=== PATIENT | male | born 1970 | race Caucasian/White ===

== ENCOUNTER 2017-08-11 22:22 | Inpatient (IN) | payer OTHER ==
[2017-08-12] VITALS (10 sets, daily range): BP systolic 121–134; BP diastolic 66–76; PULSE 46–55; RESP 16; TEMP 97.9–98.7; O2SAT 98–99
[2017-08-12] MEDS ORDERED: LACTULOSE SYRUP 20 GM/30 ML CUP PO PRN (01:15)
[2017-08-12] MEDS ORDERED: BISACODYL 10 MG SUPP RECTAL PRN (01:15)
[2017-08-12] MEDS ORDERED: SODIUM CHLORIDE 0.9% FLUSH 10 ML FLUSH IV FLUSH PRN (01:15)
[2017-08-12] MEDS ORDERED: MAGNESIUM HYDROXIDE SUSP 30 ML CUP PO PRN (01:15)
[2017-08-12] MEDS ORDERED: NALOXONE HCL 0.4 MG/ML AMP IV PUSH PRN (01:15)
[2017-08-12] MEDS ORDERED: SENNOSIDES 8.6 MG TAB PO PRN (01:15)
[2017-08-12] MEDS ORDERED: MORPHINE SULFATE 4 MG/ML INJ IV PRN (01:30)
--- NOTE | 2017-08-12 07:49 | HHI.HP ---
[facility] Primary Care Physician No Primary Care Physician Admission Diagnosis Diagnoses: Travel History International Travel<30 Days: No Contact w/Intl Traveler <30 Da: No Sepsis Criteria SIRS Criteria (2 or more): WBC > 60741, < 4000 or > 10% bands History of Present Illness 46 year old male with no significant medical history presented to the ED in [place] yesterday evening for evaluation of RUQ abdominal pain and subsequently transferred to the [facility] for further evaluation. He states the pain came on suddenly for the first time about a week ago and lasted about an hour then recurred that same evening. He describes the pain as sharp, constant, nonradiating, and 10/10. He had eaten chicken wings prior to the pain the second time it occurred but the first time he states he hadn't eaten anything. The pain then came on again yesterday evening about a couple hours after eating a sub. He states he had to pace around his house because the pain was so severe and it was associated with nausea and vomiting. Aspirin and Pepto Bismol provided no relief. Prior to these few episodes, he has never experienced pain like this before. He denies any urine symptoms, diarrhea, jaundice, melena, or hematochezia. He states he lost about 25 pounds in the past six months from changing his dietary habits. He hasn't had any morphine since transferring to the [facility] and states he has been pain free since about 10 PM yesterday evening. He is tolerating liquids but hasn't eaten anything. He has had no further episodes of nausea or vomiting. He wants to go home. He does not have a PCP. Review of Systems Constitutional: COMPLAINS OF: Chills, Change in appetite, DENIES: Fatigue, Fever Endocrine: DENIES: Polyuria Eyes: DENIES: Blurred vision Respiratory: DENIES: Cough, Shortness of breath Cardiovascular: DENIES: Chest pain, Palpitations, Syncope Gastrointestinal: COMPLAINS OF: Abdominal pain, Constipation, Nausea, Vomiting , DENIES: Black stools, Bloody stools, Diarrhea Genitourinary: DENIES: Urinary frequency, Hematuria, Dysuria Musculoskeletal: DENIES: Joint pain Integumentary: DENIES: Rash Neurologic: DENIES: Headache Past Family Social History Past Medical History None Past Surgical History R shoulder repair Reported Medications None Allergies: Coded Allergies: No Known Allergies (Unverified , 08/11/17) Active Ordered Medications Bisacodyl (Dulcolax Supp) 10 mg DAILY PRN RECTAL; Start 08/12/17 at 01:15 Lactulose (Lactulose Liq) 30 ml DAILY PRN PO; Start 08/12/17 at 01:15 Magnesium Hydroxide (Milk Of Magnesia Liq) 30 ml Q12H PRN PO; Start 08/12/17 at 01:15 Morphine Sulfate (Morphine Inj) 2 mg Q3H PRN IV; Start 08/12/17 at 01:30 Naloxone HCl (Narcan Inj) 0.4 mg UNSCH PRN IV PUSH; Start 08/12/17 at 01:15 Sennosides (Senokot) 17.2 mg Q12H PRN PO; Start 08/12/17 at 01:15 Sodium Chloride (NS Flush) 2 ml BID IV FLUSH; Start 08/12/17 at 09:00 Sodium Chloride (NS Flush) 2 ml UNSCH PRN IV FLUSH; Start 08/12/17 at 01:15 Family History Parents alive and well Denies significant medical history in the family Social History Lives in [place] 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 SKIN: No rashes, ecchymoses or lesions. Cool and dry. No jaundice. HEAD: Atraumatic. Normocephalic. No temporal or scalp tenderness. EYES: Pupils equal round and reactive. Extraocular motions intact. No scleral icterus. No injection or drainage. ENT: Nose without bleeding, purulent drainage or septal hematoma. Throat without erythema, tonsillar hypertrophy or exudate. Uvula midline. Airway patent. NECK: Trachea midline. No JVD or lymphadenopathy. Supple, nontender, no meningeal signs. CARDIOVASCULAR: Bradycardic with a regular rhythm. No murmurs, rubs, or gallops. RESPIRATORY: Clear to auscultation. Breath sounds equal bilaterally. No wheezes , rales, or rhonchi. GASTROINTESTINAL: Bowel sounds hypoactive but present. Abdomen soft, nontender, nondistended. No hepatosplenomegaly or palpable masses. No guarding. MUSCULOSKELETAL: Extremities without clubbing, cyanosis, or edema. No joint tenderness, effusion, or edema noted. No calf tenderness. Negative Homans sign bilaterally. NEUROLOGICAL: Awake and alert. Motor and sensory grossly within normal limits. Normal speech. Imaging CT abdomen 08/11 with no acute abnormality identified to explain L flank pain and lower abdominal pain. There is a small hiatal hernia and incidental 7 mm low density lesion in the R posterior liver too small to characterize. Gallbladder is distended but no calcified gallstones are present Caprini VTE Risk Assessment Caprini VTE Risk Assessment: No/Low Risk (score <= 1) Caprini Risk Assessment Model Point Value = 1 Point Value = 2 Point Value = 3 Point Value = 5 Age 41-60 Minor surgery BMI > 25 kg/m2 Swollen legs Varicose veins or History of unexplained or recurrent spontaneous Oral contraceptives or hormone replacement Sepsis (< 1 month) Serious lung disease, including pneumonia (< 1 month) Abnormal pulmonary function Acute myocardial infarction Congestive heart failure (< 1 month) History of inflammatory bowel disease Medical patient at bed rest Age 61-74 Arthroscopic surgery Major open surgery (> 45 min) Laparoscopic surgery (> 45 min) Malignancy Confined to bed (> 72 hours) Immobilizing plaster cast Central venous access Age >= 75 History of VTE Family history of VTE Factor V Leiden Prothrombin [id number] Lupus anticoagulant Anticardiolipin antibodies Elevated serum homocysteine Heparin-induced thrombocytopenia Other congenital or acquired thrombophilia Stroke (< 1 month) Elective arthroplasty Hip, pelvis, or leg fracture Acute spinal cord injury (< 1 month) Prophylaxis Regimen Total Risk Factor Score Risk Level Prophylaxis Regimen 0-1 Low Early ambulation 2 Moderate Order ONE of the following: *Sequential Compression Device (SCD) *Heparin 5000 units SQ BID 3-4 Higher Order ONE of the following medications: *Heparin 5000 units SQ TID *Enoxaparin/Lovenox 40 mg SQ daily (WT < 150 kg, CrCl > 30 mL/min) *Enoxaparin/Lovenox 30 mg SQ daily (WT < 150 kg, CrCl > 10-29 mL/min) *Enoxaparin/Lovenox 30 mg SQ BID (WT < 150 kg, CrCl > 30 mL/min) AND/OR *Sequential Compression Device (SCD) 5 or more Highest Order ONE of the following medications: *Heparin 5000 units SQ TID (Preferred with Epidurals) *Enoxaparin/Lovenox 40 mg SQ daily (WT < 150 kg, CrCl > 30 mL/min) *Enoxaparin/Lovenox 30 mg SQ daily (WT < 150 kg, CrCl > 10-29 mL/min) *Enoxaparin/Lovenox 30 mg SQ BID (WT < 150 kg, CrCl > 30 mL/min) AND *Sequential Compression Device (SCD) Assessment and Plan Problem List: (1) Abdominal pain ICD Code: R10.9 - Unspecified abdominal pain Assessment and Plan 46 year old male with no significant medical history admitted overnight for evaluation of RUQ abdominal pain. 1. RUQ abdominal pain, now resolved - Afebrile, leukocytosis with WBC 17 - U/A unremarkable, culture pending - CT abdomen with distended gallbladder, no calcified stones, and incidental 7 mm liver lesion too small to characterize - GB U/S pending - Lipase WNL - LFTs WNL - Pain, nausea, and vomiting all resolved - Advised to avoid fatty foods - Will have try a light breakfast and see how he does - Likely GB colic which can be followed as outpatient 2. Hypercalcemia - Calcium elevated at 10.2 - Repeat CMP today - If this continues to be elevated recommend checking PTH as primary hyperparathyroidism may cause abdominal pain as well 3. Leukocytosis - WBC 17.2 on presentation with no clear etiology of infection - Afebrile - Repeat CBC 4. Bradycardia - Likely chronic - Asymptomatic - Monitor DVT prophylaxis: Low risk and ambulatory Code Status FULL Discussed Condition With The patient and RN Physician Certification 2 Midnight Certification Type: Admission for Inpatient Services Order for Inpatient Services The services are ordered in accordance with Medicare regulations or non- Medicare payer requirements, as applicable. In the case of services not specified as inpatient-only, they are appropriately provided as inpatient services in accordance with the 2-midnight benchmark. Estimated LOS (days): 2 2 days is the estimated time the patient will need to remain in the hospital, assuming treatment plan goals are met and no additional complications. Post-Hospital Plan: Home Afshan Hastings MD Aug 12, 2017 07:49
--- NOTE | 2017-08-12 08:42 | RADRPT ---
EXAM DATE: 08/12/2017 8:31 AM EDT AGE/SEX: 46 years / Male INDICATIONS: Right upper quadrant pain. Nausea and vomiting. CLINICAL DATA: This is the patient's initial encounter. Patient reports that signs and/or symptoms h ave been present for 1 day and indicates a pain score of 10/10. MEDICAL/SURGICAL HISTORY: . . COMPARISON: [facility], CT ABDOMEN & PELVIS W/O CONTRAST, 08/11/2017. MEASUREMENTS (cm x cm x cm): Liver:__ 15.2 cm length Common Bile Duct:__ 4mm FINDINGS: Liver: Normal echotexture without focal lesion or ductal dilatation. No lesions are identified. Portal Vein: Hepatopedal flow seen in portal vein. Common Duct: No intraluminal mass or stone visualized. Gallbladder: The gallbladder is distended with diffuse low level echoes and punctate areas of increa sed echogenicity. Findings are suspicious for sludge and small stones. There is mild wall thickening measuring approximately 4 mm. Pancreas: The visualized portions are within normal limits Right Kidney: No mass or hydronephrosis Other: None. CONCLUSION: 1. The gallbladder is distended with sludge with mild wall thickening. Punctate areas of increased e chogenicity are suspicious for multiple small stones. Given the patient's presentation of pain within the right upper quadrant findings are suspicious for acute cholecystitis. Electronically signed by: Sherri Hathaway MD 08/12/2017 8:41 AM EDT
[2017-08-12] MEDS ORDERED: SODIUM CHLORIDE 0.9% FLUSH 10 ML FLUSH IV FLUSH SCH (09:00)
[2017-08-12 09:50] LABS: AUTOMATED NEUTROPHIL # 10.4 TH/MM3 (1.8-7.7); BASOPHIL # 0.1 TH/MM3 (0-0.2); BASOPHIL % 0.5 % (0.0-2.0); EOSINOPHIL # 0.1 TH/MM3 (0-0.4); HEMOGLOBIN 17.4 GM/DL (13.0-17.0); LYMPH % 18.1 % (9.0-44.0); LYMPHOCYTE # 2.6 TH/MM3 (1.0-4.8); MEAN CELL VOLUME 85.8 FL (80.0-100.0); MEAN CORPUSCULAR HEMOGLOBIN 29.3 PG (27.0-34.0); MEAN CORPUSCULAR HGB CONC 34.2 % (32.0-36.0); MEAN PLATELET VOLUME 9.9 FL (7.0-11.0); MONO % 7.8 % (0.0-8.0); MONOCYTE # 1.1 TH/MM3 (0-0.9); NEUT % 72.6 % (16.0-70.0); PLATELET COUNT 161 TH/MM3 (150-450); RED BLOOD COUNT 5.95 MIL/MM3 (4.50-5.90); RED CELL DISTRIBUTION WIDTH 14.7 % (11.6-17.2); WHITE BLOOD COUNT 14.4 TH/MM3 (4.0-11.0)
[2017-08-12 10:10] LABS: ALT (GPT) 49 U/L (12-78)
[2017-08-12 10:12] LABS: ALKALINE PHOSPHATASE 68 U/L (45-117); TOTAL BILIRUBIN ADULT 1.2 MG/DL (0.2-1.0); TOTAL PROTEIN 8.2 GM/DL (6.4-8.2)
[2017-08-12 10:16] LABS: ALBUMIN 4.3 GM/DL (3.4-5.0); AST (GOT) 29 U/L (15-37); BICARBONATE 26.4 MEQ/L (21.0-32.0); BLOOD UREA NITROGEN 20 MG/DL (7-18); CALCIUM 9.2 MG/DL (8.5-10.1); CHLORIDE 104 MEQ/L (98-107); CREATININE 1.18 MG/DL (0.60-1.30); GLOMERULAR FILTRATION RATE 67 ML/MIN (>89); GLUCOSE,RANDOM 95 MG/DL (74-106); SODIUM (NA) 139 MEQ/L (136-145)
--- NOTE | 2017-08-12 10:30 | HHI.DCPOC ---
Discharge Care Plan Diagnosis: (1) Cholecystitis (2) Gallbladder colic Goals to Promote Your Health * To prevent worsening of your condition and complications * To maintain your health at the optimal level Directions to Meet Your Goals Take your medications as prescribed Follow your dietary instruction Follow activity as directed Keep your appointments as scheduled Take your immunizations and boosters as scheduled If your symptoms worsen call your PCP, if no PCP go to Urgent Care Center or Emergency Room Smoking is Dangerous to Your Health. Avoid second hand smoke Call the 24-hour hour crisis hotline for domestic abuse at Afshan Hastings MD Aug 12, 2017 10:30
[2017-08-12] MEDS ORDERED: CIPR-9 PO (10:32)
[2017-08-12] MEDS ORDERED: METR-1 PO (10:32)
== END 2017-08-12 10:47 | disposition home or self-care (01) | DRG 446 ==
LOC: PHEDDLT 08-12 00:45 → HCIS 08-12 00:55
PROVIDERS: ADMIT Family Medicine; ATTEND Family Medicine
DX: K80.10 Calculus of gallbladder with chronic cholecystitis without obstruction (principal); E83.52 Hypercalcemia; R00.1 Bradycardia, unspecified; D72.829 Elevated white blood cell count, unspecified
CPT/HCPCS: 76705; 80053; 85025

== ENCOUNTER 2017-09-23 06:22 | Inpatient (IN) ==
[2017-09-23] MEDS ORDERED: Morphine Inj 4 MG, Morphine Inj 2 MG IV.PUSH ONE ×2 (07:16)
--- NOTE | 2017-09-23 07:18 | ED ---
HPI General Chief complaint: Abdominal Pain Stated complaint: ABD pain, EVAC Time Seen by Provider: 09/23/17 07:01 History of Present Illness HPI narrative: Patient is a 47-year-old male presents emergency department for right upper quadrant abdominal pain started about 0400 this morning. Patient states he had chicken and rice last night for dinner. States he has known gallbladder problems is scheduled to have his gallbladder out with Dr. Natarajan later this month. Mild nausea no vomiting no diarrhea no fevers. States the pain is fairly intense right upper quadrant no radiation, associated signs symptoms in context as above. Related Data Previous Rx's Medication Instructions Recorded oxycodone-acetaminophen 1 tab PO Q4H PRN tab 09/24/17 Allergies Allergy/AdvReac Type Severity Reaction Status Date / Time No Known Allergies Allergy Verified 09/23/17 06:26 Review of Systems Except as stated in HPI: all other systems reviewed are negative [facility] History Medical History Gall stone (Acute) Social History Social History Substance History: Past History Second Hand Smoke Exposure: Yes Smoking Status: Current every day smoker Tobacco Type: Cigarettes How Often Do You Have a Drink Containing Alcohol: 2 to 4 times a month Recent Travel in [facility] within the Last 8 Weeks: No Recent Out of Country Travel within the Last 8 Weeks: No Substance Abuse Detail Marijuana: Substance Frequency: COUPLE TIMES MONTH Immunization History Tetanus Immunization: Unsure Hx Influenza Vaccine This Season: No Exam Narrative Exam Narrative: GENERAL: Well-developed well-nourished, fairly uncomfortable appearance SKIN: Focused skin assessment warm/dry. HEAD: Atraumatic. Normocephalic. EYES: Pupils equal and round. No scleral icterus. No injection or drainage. ENT: No nasal bleeding or discharge. Mucous membranes pink and moist. NECK: Trachea midline. No JVD. CARDIOVASCULAR: Regular rate and rhythm. No murmur appreciated. RESPIRATORY: No accessory muscle use. Clear to auscultation. Breath sounds equal bilaterally. GASTROINTESTINAL: Abdomen soft, moderately tender in the right upper quadrant, no rebound no percussive tenderness. This dictation of the Palma sign elicits pain but is actually negative sign. nondistended. Hepatic and splenic margins not palpable 2/2 pain. MUSCULOSKELETAL: No obvious deformities. No clubbing. No cyanosis. No edema. NEUROLOGICAL: Awake and alert. No obvious cranial nerve deficits. Motor grossly within normal limits. Normal speech. PSYCHIATRIC: Appropriate mood and affect; insight and judgment normal. Course Initial Documented Vital Signs Temperature 97.8 F 09/23/17 06:26 Pulse Rate 48 L 09/23/17 06:26 Respiratory Rate 16 09/23/17 06:26 Blood Pressure 151/83 H 09/23/17 06:26 Pulse Oximetry 100 09/23/17 06:26 Last Documented Vital Signs Temperature 97.6 F 09/24/17 08:00 Pulse Rate 54 L 09/24/17 08:00 Respiratory Rate 20 09/24/17 08:00 Blood Pressure 116/62 09/24/17 08:00 Pulse Oximetry 97 09/24/17 08:00 Medical Decision Making MDM Narrative Medical decision making narrative: Patient with positive US for cholecystitis. Labs reassuring. Feeling improved after morphine but pain not completely resolved. D/W Dr. Natarajan who knows patient. Would like to admit probable cholecystectomy. Differential Diagnosis Differential Diagnosis: Cholecystitis, pancreatitis, gastritis, gastroenteritis. Lab Data Result diagrams: 09/23/17 07:18 09/23/17 07:18 Lab Results 09/23/17 09/23/17 09/23/17 Range/Units 07:18 07:18 11:20 WBC 12.7 H (4.0-11.0) th/mm3 RBC 5.58 (4.50-5.90) mil/mm3 Hgb 16.5 (13.0-17.0) gm/dL Hct 48.6 (39.0-51.0) % MCV 87.2 (80.0-100.0) fL MCH 29.5 (27.0-34.0) pg MCHC 33.8 (32.0-36.0) % RDW 13.8 (11.6-17.2) % Plt Count 184 (150-450) th/mm3 MPV 9.9 (7.0-11.0) fL Neut % (Auto) 78.6 H (16.0-70.0) % Lymph % (Auto) 13.5 (9.0-44.0) % [place] % (Auto) 7.0 (0.0-8.0) % Eos % (Auto) 0.4 (0.0-4.0) % Baso % (Auto) 0.5 (0.0-2.0) % Neut # (Auto) 10.0 H (1.8-7.7) th/mm3 Lymph # (Auto) 1.7 (1.0-4.8) th/mm3 [place] # (Auto) 0.9 (0.0-0.9) th/mm3 Eos # (Auto) 0.0 (0.0-0.4) th/mm3 Baso # (Auto) 0.1 (0.0-0.2) th/mm3 WBC Differential . Differential Comment Auto diff final Sodium 143 (136-145) meq/L Potassium 3.5 (3.5-5.1) meq/L Chloride 109 H (98-107) meq/L Carbon Dioxide 18.8 L (21.0-32.0) meq/L Anion Gap 15 (5-15) meq/L BUN 16 (7-18) mg/dL Creatinine 1.00 (0.60-1.30) mg/dL Estimated GFR 80 L (>89) mL/min Random Glucose 116 H (74-106) mg/dL Calcium 8.5 (8.5-10.1) mg/dL Total Bilirubin 0.6 (0.2-1.0) mg/dL AST 25 (15-37) U/L ALT 43 (12-78) U/L Alkaline Phosphatase 66 (45-117) U/L Total Protein 6.7 (6.4-8.2) g/dL Albumin 3.6 (3.4-5.0) g/dL Lipase 127 (73-393) U/L Urine Color Yellow (Yellw/Straw) Urine Clarity Clear (Clear) Urine pH 6.0 (5.0-8.5) Ur Specific [place] 1.015 (1.002-1.035) Urine Protein 100 H (Neg-Trace) mg/dL Urine Glucose (UA) Negative (Negative) mg/dL Urine Ketones 20 (Negative) mg/dL Urine Occult Blood Small H (Negative) Urine Nitrate Negative (Negative) Urine Bilirubin Negative (Negative) Urine Urobilinogen Less than 2 (Less than 2) mg/dL Ur Leukocyte Esterase Negative (Negative) Urine RBC 1 (0-3) /hpf Urine WBC 4 (0-5) /hpf Hyaline Casts 1 (0-3) /lpf Urine Mucus Many H (Occasional) /lpf Micro UA Comment Culture not ind Urine Culture Comments Culture not ind Imaging Data Radiologist's impression: Gallbladder Ultrasound 09/23/17 07:16 CONCLUSION: 1. Ultrasound findings consistent with acute cholecystitis. Discharge Plan Discharge Disposition Patient Disposition: 01 Discharge Home Discharge Condition Condition: Good Discharge Order Discharge Orders: Discharge Order (Routine); Ordered 09/24/17 Ordered By: Adama Natarajan Discharge Details Anticipated Discharge Date: 09/24/17 Discharge Comment: scritp on chart Physicians Team ED Provider: Kieran Dickey Primary Care Provider: UNKNOWN, Attending Provider: Adama Natarajan Other Providers: Surgeons,[facility] Status ED Status: Left Department Discharge Information Discharge Date/Time: 09/23/17 13:30
[2017-09-23 07:35] LABS: Baso # (Auto) 0.1 th/mm3 (0.0-0.2); Baso % (Auto) 0.5 % (0.0-2.0); Eos % (Auto) 0.4 % (0.0-4.0); Hematocrit 48.6 % (39.0-51.0); Hemoglobin 16.5 gm/dL (13.0-17.0); Lymph # (Auto) 1.7 th/mm3 (1.0-4.8); Lymph % (Auto) 13.5 % (9.0-44.0); Mean Corpuscular HGB Conc 33.8 % (32.0-36.0); Mean Corpuscular Hemoglobin 29.5 pg (27.0-34.0); Mean Corpuscular Volume 87.2 fL (80.0-100.0); Mean Platelet Volume 9.9 fL (7.0-11.0); Mono # (Auto) 0.9 th/mm3 (0.0-0.9); Neut % (Auto) 78.6 % (16.0-70.0); Platelet Count 184 th/mm3 (150-450); Red Blood Count 5.58 mil/mm3 (4.50-5.90); Red Cell Distribution Width 13.8 % (11.6-17.2); White Blood Count 12.7 th/mm3 (4.0-11.0)
[2017-09-23 07:45] LABS: Alkaline Phosphatase 66 U/L (45-117); Total Protein 6.7 g/dL (6.4-8.2)
[2017-09-23 07:47] LABS: Alanine Aminotransferase 43 U/L (12-78); Albumin 3.6 g/dL (3.4-5.0); Anion Gap 15 meq/L (5-15); Aspartate Aminotransferase 25 U/L (15-37); Blood Urea Nitrogen 16 mg/dL (7-18); Calcium 8.5 mg/dL (8.5-10.1); Carbon Dioxide 18.8 meq/L (21.0-32.0); Chloride 109 meq/L (98-107); Glomerular Filtration Rate 80 mL/min (>89); Glucose,Random 116 mg/dL (74-106); Lipase 127 U/L (73-393); Sodium 143 meq/L (136-145)
[2017-09-23 07:50] LABS: Potassium 3.5 meq/L (3.5-5.1)
[2017-09-23] MEDS ORDERED: Morphine Inj 4 MG/ML Vial IV.PUSH ONE (08:00)
--- NOTE | 2017-09-23 08:59 | US ---
EXAM DATE: 09/23/2017 8:55 AM EDT AGE/SEX: 47 years / Male INDICATIONS: Right upper quadrant pain. CLINICAL DATA: This is the patient's subsequent encounter. Patient reports that signs and/or symptom s have been present for 1 day and indicates a pain score of 10/10. MEDICAL/SURGICAL HISTORY: None. . Right shoulder. COMPARISON: [facility] [place], [place] ABDOMEN - GALLBLADDER, 08/12/2017. [facility], CT ABDOMEN & PELVIS W/O CONTRAST, 08/11/2017. . MEASUREMENTS: Liver:__ 15.3 cm. Common Bile Duct:__ 4mm. FINDINGS: Liver: Normal echotexture without focal lesion or ductal dilatation. Portal Vein: Hepatopedal flow seen in portal vein. Common Duct: No intraluminal mass or stone visualized. Gallbladder: The gallbladder wall is diffusely thickened at 5 mm and there are multiple small stones identified within the lumen as well as significant gallbladder sludge. There was a positive sonograp hic Palma's sign present during the exam. Pancreas: The visualized portions are within normal limits Right Kidney: Normal echotexture and cortical thickness. No mass or hydronephrosis. Other: None. CONCLUSION: 1. Ultrasound findings consistent with acute cholecystitis. Electronically signed by: Sherri Hathaway MD 09/23/2017 8:58 AM EDT
[2017-09-23] MEDS: Morphine Inj 4 MG/ML Vial IV.PUSH PRN ×2 (11:35→15:57)
[2017-09-23] MEDS: Piperacil/Tazo 3.375 GM Premix 50 ML IV.SIG SCH ×2 (11:37→20:08)
[2017-09-23] MEDS: Sod Chloride 0.9% Inj 1,000 ML IV.CONT SCH ×2 (11:37→20:18)
[2017-09-23 11:45] LABS: Bilirubin,Urine Negative (Negative); Color,Urine Yellow (Yellw/Straw); Glucose,Urine (UA) Negative (Negative); Hyaline Casts,Urine 1 /lpf (0-3); Leukocyte Esterase,Urine Negative (Negative); Mucus,Urine Many /lpf (Occasional); Nitrite,Urine Negative (Negative); Specific Gravity,Urine 1.015 (1.002-1.035)
[2017-09-23 11:46] LABS: Clarity,Urine Clear (Clear)
[2017-09-23] MEDS ORDERED: Lidocaine PF 1% Inj 5 ML Syringe INFILTRATN ONE (12:00)
[2017-09-23] MEDS ORDERED: Sugammadex Inj 200 MG/2 ML Vial IV.PUSH ONE (16:56)
[2017-09-23] MEDS ORDERED: Bupivacaine/Epinephrine 0.5% Inj 50 ML Vial ONE (16:57)
[2017-09-23] MEDS ORDERED: ceFAZolin 2 GM Premix Inj 2 GM/50 ML PIGGYBACK IV.SIG ONE (16:58)
--- NOTE | 2017-09-23 17:47 | P.OP ---
- Preoperative Diagnosis (1) Acute cholecystitis due to biliary calculus - Postoperative Diagnosis (1) Acute cholecystitis due to biliary calculus Date of procedure: 09/23/17 Procedure: lap vasiliy Anesthesia: GETA Surgeon: Adama Natarajan MD Estimated blood loss (mL): 5 Pathology: other (gallbladder) Operation and Findings: inflamed gallbladder with stones
[2017-09-23] MEDS ORDERED: fentaNYL Citrate Inj 100 MCG/2 ML Ampul ONE ×2 (19:30→19:31)
--- NOTE | 2017-09-23 21:06 | MH ---
cc: Adama Natarajan MD, Lars S MD DATE OF ADMISSION: 09/23/2017 CHIEF COMPLAINT: Abdominal pain, acute cholecystitis. HISTORY OF PRESENT ILLNESS: The patient is a 47-year-old male who presents with acute onset of right upper quadrant abdominal pain. He states the pain started at 4 a.m. this morning, continued to get worse. It was sharp in nature, radiating to the bilateral upper quadrants, worse with movement, better with lying still. The patient came to the emergency department. Further evaluation included ultrasound showing thickened gallbladder wall with pericholecystic fluid and gallstones. Therefore, surgery was consulted. On my exam, the patient complains of the above. He also notes associated nausea, vomiting and subjective fevers. The patient has had a previous history of right upper quadrant pain on 08/12/2017 for which he had ultrasound and was referred for surgical evaluation on 08/28. He was planned for a laparoscopic cholecystectomy, but developed this acute severe right upper quadrant pain, nausea, vomiting and fevers. PAST MEDICAL HISTORY: Cholelithiasis. PAST SURGICAL HISTORY: Rotator cuff. SOCIAL HISTORY: Positive smoking, occasional ETOH. Denies IVDA. ALLERGIES: NO KNOWN DRUG ALLERGIES. MEDICATIONS: See electronic medical record. FAMILY HISTORY: Denies diabetes or hypertension. REVIEW OF SYSTEMS: GENERAL: Complains of fevers. HEENT: Denies eye pain, ear pain. NECK: Denies swallowing pain. LUNGS: Denies cough or wheeze. HEART: Denies palpitations or chest pain. ABDOMEN: Complains of nausea, vomiting and abdominal pain. GENITOURINARY: Denies dysuria or hematuria. ENDOCRINE: Denies polyuria or polydipsia. INTEGUMENT: Denies any new masses or lesions. PSYCHIATRIC: Appropriate mood and judgment. PHYSICAL EXAMINATION: GENERAL: The patient is no acute distress. VITAL SIGNS: Temperature 97.8, pulse 48, respirations 16, blood pressure 151/83, saturation 100%. HEENT: Pupils equal, round, reactive. NECK: Supple. Trachea midline. LUNGS: Clear to auscultation, bilateral expansion. HEART: S1, S2. Regular rhythm. ABDOMEN: Soft, positive tenderness to palpation in the right upper quadrant, localized rebound, no guarding. EXTREMITIES: Warm and well perfused. NEUROLOGIC: GCS of 15. 5/5 motor all extremities. PSYCHIATRIC: Appropriate mood, appropriate judgment. BACK: Normal curvature. No step-offs. LABORATORY AND DIAGNOSTIC DATA: WBC 12.7, hemoglobin 15.5, hematocrit 48.3, platelets 184. Sodium 143, potassium 3.5, chloride 109, BUN 16, creatinine 1, AST 25, ALT 43, lipase 127. IMAGING STUDIES: Ultrasound reviewed by myself showing gallstones with a thickened gallbladder wall and pericholecystic fluid. ASSESSMENT: The patient is a 47-year-old male with history of gallstones, presents with acute onset of acute cholecystitis. PLAN: Full clinical radiological and laboratory workup. A patient was above named issues. At this point, the patient needs to be nothing by mouth, intravenous fluids, intravenous pain control and antibiotics. My concern is acute cholecystitis. The patient needs laparoscopic cholecystectomy. Discussed with the patient in detail who understands and agrees and would like to proceed. MD BESSIE Vallejo/ , 08:45 PM , 09:04 PM
--- NOTE | 2017-09-23 21:13 | MP ---
cc: Adama Natarajan MD, Lars S MD DATE OF OPERATION: 09/23/2017 PREOPERATIVE DIAGNOSIS: Acute cholecystitis with cholelithiasis. POSTOPERATIVE DIAGNOSIS: Acute cholecystitis with cholelithiasis. PROCEDURE PERFORMED: Laparoscopic cholecystectomy. SURGEON: Adama Natarajan MD PROFESSOR OF FLORICULTURE: See OR sheet. ANESTHESIA: GETA. IV FLUIDS: See anesthesia sheet. ESTIMATED BLOOD LOSS: 15 mL DRAINS: None. COMPLICATIONS: None WOUND CLASSIFICATION: Clean/contaminated. FINDINGS: Distended gallbladder with inflammatory reaction, dark biliary staining to tissues. No evidence of bile leak. Good hemostasis. SPECIMENS: Gallbladder. INDICATIONS: The patient is a 47-year-old male who presents with acute onset of right upper quadrant pain. He had further workup with ultrasound showing acute cholecystitis with cholelithiasis. Therefore, decision was made for operative intervention. DETAILS OF PROCEDURE: The patient was taken to the operating suite, placed in the supine position. He was prepped and draped in the usual sterile fashion after induction of general endotracheal anesthesia. Brief timeout done stating correct patient, procedure, surgical site. We were all in agreement with this. Attention first directed to the umbilicus where a small stab real incision was made prior to a local anesthetic. A Visiport 5 mm Optiview was entered into abdomen safely. Abdomen insufflated to 15 mm of pneumoperitoneum. On cursory inspection, no evidence of injury. The patient was placed in reverse Trendelenburg airplaned to the left. Three other trocars were placed, including a 12 mm epigastric followed by two right subcostal 5 mm trocars. The gallbladder was identified. There were minimal adhesions. The gallbladder was very distended, erythematous and indurated. Endo needle was used to remove 160 mL of bile from the gallbladder. This was decompressed. Gallbladder fundus was grasped and retracted cephalad. There were noted to be some adhesions and also some darkish biliary staining to the tissues. The cystic duct and cystic artery were dissected out in the usual fashion with electro Bovie cautery, [place] and a hook. The cystic artery was identified. Two clips were placed proximal and 1 distal and this was transected. Difficulty in completely identifying and getting down to the cystic duct. Therefore, approach was changed to retrocolic and a dome down approach was done. Hook electro Bovie cautery was used to do this. The gallbladder was completely mobilized off the gallbladder fossa. An Endo loop x 2-0 PDS was done to the cystic duct. Cystic duct was identified and noted only thing going to the gallbladder. Two Endo loops were placed proximal and 1 distal. Endo Collin used to transect the cystic duct. Gallbladder was placed in the Endo Catch bag and removed from the epigastric port. Suction irrigation done until the effluent was clear. Hemostasis was good. No evidence of bile leak. The pneumoperitoneum was removed. Ports were removed. The epigastric port was closed with 0 Vicryl to the fascia. 4-0 Monocryl done to all subcuticular sutures. Local anesthetic injected. Sterile dressings including Steri-Strips and Mastisol were placed. The patient was extubated and taken stable to PACU. All lap and instrument counts were correct at the end of the procedure. MD BESSIE Vallejo/ , 08:51 PM , 09:11 PM
[2017-09-24] MEDS: Sod Chloride 0.9% Inj 1,000 ML IV.CONT SCH ×2 (04:10→11:35)
[2017-09-24] MEDS: Piperacil/Tazo 3.375 GM Premix 50 ML IV.SIG SCH ×2 (04:10→12:21)
--- NOTE | 2017-09-24 09:08 | P.PNGS ---
Subjective Patient reports: feels better, tolerating liquids well (no acute issues) Physical Exam Vital signs: Vital Signs 09/23/17 10:47 09/23/17 13:30 09/23/17 16:00 Temperature 98 F 98.2 F Pulse Rate 43 L 42 L 40 L Respiratory Rate 20 18 19 Blood Pressure 141/84 H 145/85 H 139/80 Pulse Oximetry 98 97 09/23/17 19:24 09/23/17 19:30 09/23/17 19:45 Temperature 98.3 F Pulse Rate 78 79 64 Respiratory Rate 14 17 16 Blood Pressure 140/74 135/72 124/69 Pulse Oximetry 100 98 97 09/23/17 19:50 09/23/17 20:00 09/24/17 00:00 Temperature 98.5 F 98.4 F 98.8 F Pulse Rate 65 61 54 L Respiratory Rate 18 Blood Pressure 130/68 120/64 129/61 Pulse Oximetry 98 95 96 09/24/17 03:58 09/24/17 08:00 Temperature 98.3 F 97.6 F Pulse Rate 50 L 54 L Respiratory Rate 16 20 Blood Pressure 117/59 L 116/62 Pulse Oximetry 97 97 Intake & Output 09/23/17 09/24/17 09/24/17 18:59 06:59 18:59 Intake Total 50 / 50 3910 / 3910 Output Total 50 / 50 Balance 50 / 50 3860 / 3860 Intake: IV 50 / 50 2150 / 2150 NS Inj 1,000 ML @ 125 mls/hr IV 1999 / 1999 .CONT .Q8H [facility] Rx#:[id number] Zosyn 3.375 GM Premix 50 ML @ 50 / 50 100 / 100 100 mls/hr IV.SIG Q8H [facility] Rx#: [id number] Ancef 2 GM Premix Inj 2 gm In 50 / 50 50 ml @ 0 mls/hr IV.SIG .STK[facility] Rx#:[id number] Oral 960 / 960 Anesthesia Amount 800 / 800 Output: Estimated Blood Loss 50 / 50 Other: # Voids 2 - Routine Respiratory Exam Present: CTA bilaterally - Routine Cardiovascular Exam Present: RRR, S1, S2 - Routine Abdominal Exam Present: soft (incisional tenderness, c/d/i) Assessment and Plan - Plan POD 1 Lap vasiliy- doing well plan reg diet oob pain control po d/c today
== END 2017-09-24 12:28 | disposition home or self-care (01) ==
LOC: NEPE 06:22 → NEDA 10:34 → N07 13:27
PROVIDERS: ADMIT Surgery; ATTEND Surgery
DX: K80.00 Calculus of gallbladder with acute cholecystitis without obstruction